=== PATIENT | male | born 1975 | race Caucasian/White ===

== ENCOUNTER 2018-10-07 06:39 | Day surgery (SDC) | payer OTHER ==
[~2018-10-07] VITALS: Ht 180.3 cm; Wt 122.3 kg
[~2018-10-07 06:39] MED LIST: SODIUM CHLORIDE 0.9% 1,000 ML IV ONE
[2018-10-07] MEDS ORDERED: BENZOCAINE 20% 50 MCG/SPRAY 57 GM TP ONE (06:40)
[2018-10-07] MEDS ORDERED: ALBUTEROL SULFATE 2.5 MG/0.5 ML NEB SOLUTION NEB ONE (06:40)
[2018-10-07] MEDS ORDERED: LIDOCAINE 2% 11 ML JELLY TP ONE (06:40)
[2018-10-07] MEDS ORDERED: LIDOCAINE 4% 50 ML SOLUTION TP ONE (06:40)
[2018-10-07] MEDS ORDERED: DOXY50CA7 PO (07:16)
[2018-10-07] MEDS ORDERED: OMEP20 PO (07:16)
[2018-10-07] MEDS ORDERED: FLUT16H NASAL (07:16)
[2018-10-07] MEDS ORDERED: SUCR1TAB PO (07:16)
[2018-10-07] MEDS ORDERED: ALBU8HFA IH (07:16)
[2018-10-07] MEDS ORDERED: FentaNYL CITRATE-PF 100 MCG/2 ML VIAL ONE (07:53)
[2018-10-07] MEDS ORDERED: MIDAZOLAM HCL 2 MG/2 ML VIAL ONE (07:53)
[2018-10-07] MEDS ORDERED: MethylPREDNISolone SOD SUCC 125 MG/2 ML VIAL IVP ONE (09:15)
[2018-10-07] MEDS ORDERED: OXYGEN THERAPY IH SCH (20:00)
== END 2018-10-07 10:45 | disposition home or self-care (01) ==
LOC: SURGERY 06:39
PROVIDERS: ATTEND Internal Medicine Critical Care Medicine
DX: J38.4 Edema of larynx (principal); B37.0 Candidal stomatitis
CPT/HCPCS: 31623; 31624; 71045; 87015; 87070; 87101; 87205; 87206; 87220; 88108; 88312; J2250; J3010; J7030